=== PATIENT | female | born 1990 | race Caucasian/White ===

== ENCOUNTER 2016-12-24 16:10 | Emergency (ER) | payer OTHER ==
[2016-12-24 16:23] VITALS: RESP 16
[2016-12-24] MEDS ORDERED: ACETAMINOPHEN 500 MG TABLET PO ONE ×2 (17:05→17:12)
[2016-12-24] MEDS ORDERED: Sodium Chloride 0.9% 1,000 ML PRIMARY IV ONE (17:11)
[2016-12-24 17:36] LABS: HEMATOCRIT 38.4 % (37.0-47.0); HEMOGLOBIN 13.3 g/dL (12.0-16.0); MEAN CORPUSCULAR HEMOGLOBIN 30.4 PG (27-31); MEAN CORPUSCULAR HGB CONC 34.6 g/dL (33-37); MEAN PLATELET VOLUME 10.8 FL (7.4-12.2); RDW COEFFICIENT OF VARIATION 13.9 % (11.5-14.5); RED BLOOD COUNT 4.38 10^6/uL (4.20-5.40); WHITE BLOOD COUNT 8.26 10^3/uL (4.8-10.8)
[2016-12-24 18:01] LABS: PLATELET MORPHOLOGY COMMENT NORMAL MORPHOLOGY (NORM)
[2016-12-24 18:02] LABS: BAND NEUTROPHILS % 0 % (0-10); BASOPHILS % (MANUAL) 0 % (0-1); EOSINOPHILS % (MANUAL) 1 % (0-8); LYMPHOCYTES % (MANUAL) 69 % (10-50); METAMYELOCYTES % 0 %; MONOCYTES % (MANUAL) 4 % (0-12); MYELOCYTES % 0 %; NEUTROPHILS % (MANUAL) 26 % (50-80); PROMYELOCYTES % 0 %
[2016-12-24 18:04] LABS: URINE SPECIFIC GRAVITY - MAN 1.015
[2016-12-24 19:12] VITALS: TEMP 98.9
--- NOTE | 2016-12-24 22:20 | PDOC ---
General Adult HPI - General Chief Complaint: General Medical Stated Complaint: chills, fever, body aches, headache Date Seen by Provider: 12/24/16 Time Seen by Provider: 16:20 Source: POSITIVE: Patient Exam Limitations: POSITIVE: No limitations Nurse's Notes Reviewed & Considered: Yes - History of Present Illness Initial Comment: The patient is a 26-year-old female. She states that approximately 1-1/2 weeks ago she developed some URI symptoms. 4 days ago [facility] and was started on Augmentin for sinusitis. Patient states that for the last 3 days she has been having fevers. She's also had a minimally productive cough and some nausea. She's had chills. No symptoms. Mild sore throat. She states she has received an influenza vaccination within the past year. She reports that her temperature earlier today was 101F. Have you received a tetanus shot in the past 10 years?: Yes Body Location Affected: REPORTS: Other (Fever, chills, some headache, mild cough ) Timing: REPORTS: Gradual, Getting Worse Duration: >1 week (1-1/2 weeks) Severity: Moderate Quality: REPORTS: "Pain" (Myalgia, headache) Context: REPORTS: None Modifying Factors: improves with: Nothing Similar Symptoms Previously: No Recent Care Received: REPORTS: Recently Seen, Treated by MD (As above) Any Prior Injuries Related to Current Complaint?: No - Patient Home Medications Home Medications: Home Medications Epinephrine [Epipen] 0.3 mg IM PRN #1 box 08/17/12 Levonorgestrel [Mirena] 1 each IY ONCE #1 unit 01/08/16 Amoxicillin/Potassium Clav [Augmentin 875-125 Tablet] 1 tab PO Q12H #20 tab 01/31 - Patient Allergies Allergies/Adverse Reactions: Allergies Allergy/AdvReac Type Severity Reaction Status Date / Time No Known Drug Allergies Allergy NOT Verified 12/24/16 16:16 APPLICABLE Past Medical History - heen HEENT History: Denies History Cardiovascular History: Denies History Respiratory History: Denies History Gastrointestinal History: GERD Genitourinary History: Denies History Endocrine History: Other (please comment) Additional Endocrine History: INSULIN RESISTANT Musculoskeletal History: Denies History Prosthesis or Implant: No Neurological History: Denies History Blood Disorders: Denies History Psychiatric History: Denies History Female Reproductive History: Denies History LMP: unknown Obstetrical History: Denies History Cancer History: Denies History In Past Year Been Physically Harmed or Verbally Threatened: No History of MDRO: No Tobacco Use: Never Smoker Alcohol Use: None Substance Use Type: None Previous Surgical History: No Significant Family History: Asthma, Heart disease, Cancer, Diabetes, Hypertension Past Medical History Reviewed: Reviewed - No Changes ROS - Limitations ROS Limitations: No Limitations Constitution: REPORTS: Chills, Fever Cardiovascular: REPORTS: Denies Cardiac Symptoms Respiratory: REPORTS: Cough Non Productive Neurological: REPORTS: Denies Neuro Symptoms Gastrointestinal: REPORTS: Denies GI Symptoms Endocrine: REPORTS: Denies Symptoms Musculoskeletal: REPORTS: Denies MS Symptoms Genitourinary: REPORTS: Denies Symptoms Eyes: REPORTS: Denies Symptoms ENT: REPORTS: Denies Symptoms Skin: REPORTS: Denies Skin Symptoms Lympathic: REPORTS: Denies Lympathic Symptoms Immunologic: POSITIVE: Denies Symptoms Psychiatric: POSITIVE: Denies Psych Symptoms General Adult Exam - General Appearance General Appearance: POSITIVE: Alert, Cooperative, No Acute Distress, No Evidence of Trauma - HEENT HEENT: POSITIVE: Head Inspection Nml, Eyes Inspection Nml, Ears Inspection Nml, Nose Inspection Nml, Oral/Dental Inspect. Nml, Pharynx Inspect. Nml, PERRL, EOMI - Pupils Pupil Size: 4 mm: Bilateral (PERRLA) - Neck Neck: POSITIVE: Normal Inspection, Thyroid Normal - Respiratory Respiratory: POSITIVE: No Respiratory Distress, Breath Sounds Normal, Chest Non- Tender - Cardiovascular Cardiovascular: POSITIVE: Regular Rate & Rhythm, No Murmur, No Gallop, PMI Normal Peripheral Pulses: Radial (R): 2+, Radial (L): 2+ - Abdomen Abdomen: Soft: (All Quadrants), Normal Bowel Sounds: (All Quadrants), Denies Tenderness: (All Quadrants), No Splenomegaly: (All Quadrants), No Hepatomegaly: (All Quadrants), No Guarding: (All Quadrants), No Rebound: (All Quadrants), No Palpable Pulse: (All Quadrants), No Palpabale Mass: (All Quadrants), No Distention: (All Quadrants), No Rigidity: (All Quadrants) - Back Back: POSITIVE: Normal Inspection - Skin Skin: POSITIVE: Normal Color, Warm, Dry, No Rash - Extremities Extremity: Non-Tender: (All Extremities), Normal ROM: (All Extremities), Normal Inspection: (All Extremities) - Neurological / Psychological Neurological: POSITIVE: Oriented X3, 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, Motor Normal, Sensation Normal, 5, 6 General Adult Progress - Results Reviewed by me Xrays/CTs/US Reviewed by me: Yes Discussed with Radiologist: Yes Radiology Findings: Chest x-ray normal Lab Results Reviewed: Yes (prominent lymphocytosis; mononucleosis screen positive) Lab Results:: Laboratory Results 12/24/16 12/24/16 12/24/16 Range/Units 17:20 17:59 18:21 WBC 8.26 (4.8-10.8) 10^3/uL RBC 4.38 (4.20-5.40) 10^6/uL Hgb 13.3 (12.0-16.0) g/dL Hct 38.4 (37.0-47.0) % MCV 87.7 (81-99) FL MCH 30.4 (27-31) PG MCHC 34.6 (33-37) g/dL RDW Std Deviation 43.8 (39-50) fL RDW Coeff of Boo 13.9 (11.5-14.5) % Plt Count 129 L (140-350) 10*3/uL MPV 10.8 (7.4-12.2) FL Neutrophils % (Manual) 26 L (50-80) % Band Neutrophils % 0 (0-10) % Lymphocytes % (Manual) 69 H (10-50) % Monocytes % (Manual) 4 (0-12) % Eosinophils % (Manual) 1 (0-8) % Basophils % (Manual) 0 (0-1) % Metamyelocytes % 0 % Myelocytes % 0 % Promyelocytes % 0 % Blast Cells 0 (0-1) % WBC Morphology Comment See comments (NORM) Plt Morphology Comment Normal morphology (NORM) RBC Morph Comment Normal morphology (NORM) U Specif Grav (Refrac) 1.015 Urine HCG, Qual Negative Monoscreen Positive (NEG) - Patient's Progress Pain Medication Addressed: POSITIVE: Yes (Hydrocodone/APAP, one every 6 hours as necessary for discomfort; Tylenol for [id number] pain) School/Work Release Addressed: POSITIVE: Yes (No work until without fever for 48 hours) Re-Examine Time: 18:45 Re-Examine Comment: Diagnosis and treatment plan discussed with patient and her Status: POSITIVE: Unchanged, Re-Examined Antibiotics Given: No - Consult Counseled: POSITIVE: Patient, Family, RE: Lab Results, RE: Radiology Results, RE : DX, RE: Need for F/U Patient Care Time - Estimated PCT Patient Care Time (In Minutes): 40 Vital Signs - Recent Vital Signs Vital Signs: Vital Signs (Last 8 hours) Temp Pulse Pulse Resp BP BP Pulse Ox 12/24/16 19:04 98.9 F 110 H 16 123/89 95 12/24/16 17:14 103.4 F H 12/24/16 17:06 103.2 F H 128 H 16 136/74 97 12/24/16 16:10 99.8 F H 124 H 16 132/95 97 - VS Reviewed Vital Signs Reviewed: Yes Discharge Clinical Impression: Mononucleosis Discharge Disposition: Discharged to Home Condition: Stable Patient Instructions Given at Discharge: Mononucleosis (ED) Additional Instructions: I believe you have mononucleosis. I recommend you stop your Augmentin, as mononucleosis is a viral infection and is not treated with antibiotics. Tylenol every 4-6 hours as necessary for fever. Increase fluids. Avoid kissing , coughing around other people, sharing glasses or any other activity where your likely to contaminate anyone else with droplets from your upper respiratory tract. No horseback riding, contact athletics, or any other activities were your likely to sustain abdominal trauma for about 4 weeks. No work until you have been without fever for 1-2 days. Return here anytime if condition worsens in any way whatsoever. Follow-up with your primary care provider. Follow Up With: DIANE SAN [Primary Care Provider] - (Instructions as above. Follow-up with your primary care provider. Return here anytime if condition worsens.)
--- NOTE | 2016-12-25 09:31 | DI ---
PA /LATERAL CHEST X-RAY, 12/24/2016 5:12 PM : Clinical History: Fever and cough Previous Exam: August 03, 2016 There is no acute soft tissue or bony abnormality. Heart size is normal. Lungs are clear. Mediastinal structures are normal. There are no pulmonary nodules. IMPRESSION: Normal chest x-ray.
== END 2016-12-24 19:04 | disposition home or self-care (01) ==
LOC: ER 16:10
DX: B27.90 Infectious mononucleosis, unspecified without complication (principal); R51 Headache; R11.0 Nausea; R05 Cough
CPT/HCPCS: 71020; 84703; 85007; 86308; 87804; 96360; 96361; 99283; J7030

== ENCOUNTER → 2017-02-20 | Outpatient (CLI) | payer OTHER ==
--- NOTE | 2017-02-20 16:54 | DI ---
RIGHT FOOT, 02/20/2017 3:57 PM: Clinical History: Right foot injury. Previous Exam: None at this facility. 3 weightbearing views are submitted. There is no acute soft tissue, osseous, or joint abnormality. Reading: Normal right foot exam.
== END ==
LOC: RAD 16:04
PROVIDERS: ATTEND Physician Assistant Medical
DX: M25.571 Pain in right ankle and joints of right foot (principal); S93.601A Unspecified sprain of right foot, initial encounter; X50.1XXA Overexertion from prolonged static or awkward postures, initial encounter
CPT/HCPCS: 73630

== ENCOUNTER → 2017-03-12 | Outpatient (CLI) | payer OTHER ==
--- NOTE | 2017-03-17 15:09 | HOLTER ---
[facility] Interpretive Statements This is a 48 hour Holter study done for "palpitations." A detailed diary frost 24 "events" with all but two being only descriptions of activity without mention of specific symptoms. At 9:44 AM day 2 there was an event with "ache left of sternum" and at 10:16 AM day 2 there was a "sharp right of sternum" notation made. These two specifically symptomatic episodes correlated with normal sinus rhythm with no ectopics and rates of 87 and 101 BPM. During 3 of the 22 "events" with no symptoms noted there were singlet VPCs. Of a total of 232,931 beats there were 1,153 ventricular ectopics all of which being singlet and there was a single episode of ventricular trigeminy at 9:55 PM day 1 (without symptoms or activity noted at that time). There were only 21 possible atrial ectopics and there was only one run of possible 4 beats (but interference with baseline noise compromising). There were no pauses > 2 seconds and no significant bradycardias. The fastest tachycardia was 137 BPM at 7:[address] and QTc analyses were within normal limits. IMPRESSION: Frequent VPCs without good correlation to subjective symptoms. Consider stress, TSH, stimulants. Consider echocardiogram and/or cardiology consult. Electronically Signed On 03-18-17 12:02:28 MDT by Matheus Brian MD [email or web address]
== END ==
LOC: EKG 14:53
PROVIDERS: ATTEND Nurse Practitioner Family
DX: R00.2 Palpitations (principal)
CPT/HCPCS: 93225; 93226; 93227

== ENCOUNTER → 2017-03-13 | Outpatient (CLI) | payer OTHER ==
[2017-03-13 08:09] LABS: HEMATOCRIT 40.9 % (37.0-47.0); HEMOGLOBIN 14.1 g/dL (12.0-16.0); MEAN CORPUSCULAR HEMOGLOBIN 29.3 PG (27-31); MEAN CORPUSCULAR HGB CONC 34.5 g/dL (33-37); MEAN PLATELET VOLUME 9.6 FL (7.4-12.2); RED BLOOD COUNT 4.81 10^6/uL (4.20-5.40)
[2017-03-13 08:38] LABS: BLOOD UREA NITROGEN 15 mg/dL (7-22); BUN/CREATININE RATIO 21.42 (6-20); EST GLOMERULAR FILTRATION > 60 (>60 ml/min/1.73m(2)); SERUM ALBUMIN 4.3 g/dL (3.5-4.8)
[2017-03-13 08:39] LABS: CHOL/HDL RATIO 3.52 RATIO (0-4.0); HDL CHOLESTEROL 48 mg/dL (40-150); SERUM CHOLESTEROL 169 mg/dL (120-200)
[2017-03-13 08:40] LABS: HEMOGLOBIN A1C 5.29 % (4.2-6.0)
== END ==
LOC: LAB 07:52
PROVIDERS: ATTEND Family Medicine
DX: Z00.01 Encounter for general adult medical examination with abnormal findings (principal); R53.83 Other fatigue; R00.2 Palpitations; R04.0 Epistaxis
CPT/HCPCS: 80053; 80061; 82607; 82728; 83036; 83540; 83550; 85027; 85610; 85730

== ENCOUNTER → 2017-03-26 | Outpatient (CLI) | payer OTHER ==
[2017-03-26 08:23] LABS: FREE T4 (FREE THYROXINE) 1.07 ng/dL (0.93-1.71)
== END ==
LOC: LAB 07:26
PROVIDERS: ATTEND Nurse Practitioner Family
DX: R00.2 Palpitations (principal); R53.83 Other fatigue
CPT/HCPCS: 36415; 84439; 84443